=== PATIENT | female | born 1945 | race Caucasian/White ===

== ENCOUNTER 2017-04-07 06:36 | Day surgery (SDC) | payer MEDICARE, MEDICAID ==
[2017-04-07 07:11] VITALS: BMI 32.9
[2017-04-07] MEDS ORDERED: Lidocaine Hydrochloride 5 ML INJ ONE (07:31)
[2017-04-07] MEDS ORDERED: Propofol 10 mg/ml Inj (20 ML) ONE (07:31)
[2017-04-07] MEDS ORDERED: Lactated Ringer's 500 ML IV ONE ×2 (07:54)
[2017-04-07] MEDS ORDERED: Pantoprazole 40 mg EC Tab PO STA (08:05)
--- NOTE | 2017-04-07 08:05 | CP.SDSHP ---
Same Day Surgery H & P - History Proposed Procedure: egd Pre-Op Diagnosis: epgastric pain. heartburn refractory to therapy - Previous Medical/Surgical History Endocrine/Metabolic: Obesity, Renal Disease Misc: Other (gerd, gastritis, liver cyst, h. pylori gastritis, kidney stones, ) Previous Surgical History: NICKOLAS - Allergies Allergies: Allergies sesame seed Allergy (Mild, Verified 04/07/17 07:23) RASH peanuts Allergy (Mild, Uncoded 04/07/17 07:23) RASH - Physical Exam Vital Signs: Vital Signs 04/07/17 07:24 Temperature 97 F L Pulse Rate 74 Respiratory 19 Rate Blood Pressure 131/72 O2 Sat by Pulse 98 Oximetry Mental Status: Alert & Oriented x3 Neuro: WNL Heart: WNL Lungs: WNL GI: WNL - Impression Impression: heartburn. epigastric pain refractory to therapy Pt. Evaluated Today:Candidate for Anesthesia & Procedure: Yes - Date & Time Date: 04/07/17 Time: 08:05 Short Stay Discharge - Short Stay Discharge Admitting Diagnosis/Reason for Visit: EPIGASTRIC PAIN, EPIGASTRIC ABD Disposition: HOME/ ROUTINE
[2017-04-07 08:44] VITALS: TEMP 96.2
[2017-04-07 09:10] VITALS: O2SAT 100
[2017-04-07 09:12] VITALS: BP 124/69; PULSE 53; RESP 12
== END 2017-04-07 09:40 | disposition home or self-care (01) ==
LOC: C.ENDO 06:36
PROVIDERS: ATTEND Internal Medicine Gastroenterology
DX: R10.13 Epigastric pain (principal); R10.815 Periumbilic abdominal tenderness; R12 Heartburn; K44.9 Diaphragmatic hernia without obstruction or gangrene; K31.7 Polyp of stomach and duodenum; K20.9 Esophagitis, unspecified
CPT/HCPCS: 43239; 88305; J2704; J7120

== ENCOUNTER 2017-10-30 15:33 | Emergency (ER) | payer MEDICARE, MEDICAID ==
[2017-10-30 15:51] VITALS: BMI 33.8
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
[2017-10-30 16:09] VITALS: RESP 16
[2017-10-30] MEDS ORDERED: Sodium Chloride 0.9% 1,000 ML IV ONE (16:54)
[2017-10-30 17:21] LABS: BASO % 0.7 % (0.0-2.0); EOS % 0.2 % (0.0-4.0); HEMOGLOBIN 13.8 g/dL (11.0-16.0); LYMPH # 2.2 K/uL (1.0-4.3); LYMPH % 67.4 % (20.0-40.0); MEAN CELL VOLUME 86.8 fL (81.0-99.0); MEAN CORPUSCULAR HEMOGLOBIN 29.7 pg (27.0-31.0); MEAN CORPUSCULAR HGB CONC 34.2 g/dL (33.0-37.0); MEAN PLATELET VOLUME 9.5 fL (7.2-11.7); MONO # 0.5 K/uL (0.0-0.8); MONO % 14.8 % (0.0-10.0); NEUT # 0.6 K/uL (1.8-7.0); NEUT % 16.9 % (50.0-75.0); NRBC % 0.3 % (0.0-2.0); RBC 4.66 Mil/uL (3.80-5.20); WHITE BLOOD COUNT 3.3 K/uL (4.8-10.8)
[2017-10-30] MEDS ORDERED: Sodium Chloride 0.9% 1,000 ML ONE ×2 (17:22→18:11)
[2017-10-30 17:24] LABS: SQUAMOUS EPITHIAL < 1 /hpf (0-5); URINE BILIRUBIN NEGATIVE (NEGATIVE); URINE BLOOD NEGATIVE (NEGATIVE); URINE CLARITY Clear (Clear); URINE COLOR Straw (YELLOW); URINE GLUCOSE (UA) NORMAL (Normal); URINE LEUKOCYTE ESTERASE NEG Leu/uL (Negative); URINE PROTEIN 1+ mg/dL (NEGATIVE); URINE UROBILINOGEN NORMAL mg/dL (0.2-1.0)
[2017-10-30 17:32] LABS: BLOOD UREA NITROGEN 9 mg/dL (7-17); CALCIUM 8.3 mg/dl (8.6-10.4); GFR AFRICAN-AMERICAN > 60; GFR NON-AFRICAN AMERICAN > 60
[2017-10-30] MEDS ORDERED: Sodium Chloride 0.9% Inh Soln (3mL) UD INH STA (17:48)
[2017-10-30 19:19] VITALS: BP 121/77; PULSE 82; TEMP 98.2; O2SAT 98
== END 2017-10-30 19:18 | disposition home or self-care (01) ==
LOC: C.ER 15:33
DX: R05 Cough (principal); R53.81 Other malaise; X02.1XXS Exposure to smoke in controlled fire in building or structure, sequela
CPT/HCPCS: 71046; 80048; 81001; 85025; 99283; J7040